=== PATIENT | female | born 1985 | race Caucasian/White ===

== ENCOUNTER 2020-12-16 09:10 | Day surgery (SDC) | payer OTHER ==
[~2020-12-16] VITALS: Ht 167.6 cm; Wt 91.9 kg
[~2020-12-16 09:10] MED LIST: LEVSIN0.125 M1 PO; MUCINEX 60600 MG/TA1 PO; PRENATAL1 TA1 PO
[2020-12-16] MEDS ORDERED: MAXALT10 MG PO (09:37)
[2020-12-16] MEDS ORDERED: PERCOCET 325 MG1 TA2 PO (09:37)
[2020-12-16] MEDS ORDERED: PHENERGAN 25 TA25 MG PO (09:38)
[2020-12-16] MEDS ORDERED: IMODIUM 2MG CAPS2 MG PO (09:39)
[2020-12-16] MEDS ORDERED: MOTRIN 800800 MG/TAB PO (09:39)
[2020-12-16] MEDS ORDERED: FLONASE NASAL S16 GM NS (09:40)
[2020-12-16 10:14] VITALS: BP 133/77; PULSE 53; TEMP 96.6
[2020-12-16] MEDS ORDERED: ULTRAM 50MG TAB50 MG PO (12:40)
[2020-12-16 13:05] VITALS: BP 128/74; PULSE 69; TEMP 98.1
[2020-12-16 13:15] VITALS: BP 108/78; PULSE 53
--- NOTE | 2020-12-16 13:15 | NUR ---
Patient is alert and oriented. She denies pain or nausea. VSS on room air. She is tolerating PO well, having ate/drank muffin and juice. Her family is at the bedside. She denies complaints or needs.
[2020-12-16 13:30] VITALS: BP 111/69; PULSE 63
--- NOTE | 2020-12-16 13:30 | NUR ---
VSS on room air. Denies pain, nausea, or needs at this time.
--- NOTE | 2020-12-16 13:41 | NUR ---
Patient ambulates to the restroom with steady gait. She voids and returns to room.
--- NOTE | 2020-12-16 14:00 | NUR ---
Patient has met discharge criteria. Discharge instructions are discussed. She denies any questions and verbalizes understanding. PIV is removed with catheter intact and hemostasis achieved. She changes to her clothing independently. She is escorted to the exit via wheelchair by staff, and discharged to the care of her who drives her home in private vehicle at 1400.
--- NOTE | 2020-12-16 15:35 | NUR ---
1305: Patient arrived back to [facility]. Patient alert and awake. Requesting blueberry muffin and cranberry juice. Tolerated both well.
== END 2020-12-16 14:00 | disposition home or self-care (01) ==
LOC: SDCO 09:10
DX: K80.10 Calculus of gallbladder with chronic cholecystitis without obstruction (principal); K58.9 Irritable bowel syndrome, unspecified; G43.909 Migraine, unspecified, not intractable, without status migrainosus; Z20.822 Contact with and (suspected) exposure to COVID-19; Z79.899 Other long term (current) drug therapy
CPT/HCPCS: J0690; J1100; J1170; J1885; J2370; J2405; J2704; J3010; J7050; J7120